=== PATIENT | male | born 1950 | race Caucasian/White ===

== ENCOUNTER 2023-11-24 12:32 | Outpatient (OUT) | payer MEDICARE, SELFPAY ==
--- NOTE | 2023-11-24 12:43 | ECG_ITS ---
[facility] Test Date: 2023-11-24 Pat Name: REANNA RAUSCH Department: Room: - Gender: Male [employer] Machine Operator: : 1950 Requested By: Order Number: [id number] Reading MD: ROMAN JADE Measurements Intervals [place] Rate: 81 P: [place]: QRS: -20 QRSD: 82 T: 31 QT: 353 QTc: 411 Interpretive Statements Atrial fibrillation POSSIBLE RIGHT VENTRICULAR CONDUCTION DELAY [RSR (QR) IN V1/V2] MINIMAL ST DEPRESSION [0.025+ mV ST DEPRESSION] ABNORMAL RHYTHM ECG No previous ECG available for comparison Electronically Signed On 11-24-2023 22:39:28 EDT by ROMAN JADE
--- NOTE | 2023-11-24 12:43 | XR_ITS ---
The [address] [address] Patient Name: REANNA RAUSCH MRN: [id number] date: 1950 Sex: M Assigned Patient Location: [facility] Current Patient Location: Accession/Order Number: [id number] Exam Date: 11/24/2023 13:29 Report Date: 11/25/2023 12:03 At the request of: SANDOVAL LLAMAS Procedure: XR chest 2V PROCEDURE: XR chest 2V DATE: 11/24/2023 12:29 PM CDT COMPARISONS: None. CLINICAL INDICATION: 73 years Male Preop exam FINDINGS: The cardiomediastinal silhouette and pulmonary vasculature are within normal limits. The lungs are clear. There is no evidence of pleural effusion or pneumothorax. Mild thoracic degenerative spondylosis is noted. There is evidence of left atrial appendage device in place. XR/XR chest 2V IMPRESSION: Chest radiograph is essentially within normal limits. Electronically authenticated by: JON KOENIG Date: 11/25/2023 12:03
[2023-11-24 13:47] LABS: Basophils Percent Auto 0.4 % (0.2-2.0); Eosinophils Absolute Auto 0.2 10^3/uL (0.0-0.7); Eosinophils Percent Auto 3.1 % (0.9-7.0); Hemoglobin 11.1 g/dL (14.0-18.0); Immature Granulocytes Abs Auto 0.04 10^3/uL (0.00-0.03); Immature Granulocytes Pct Auto 0.6 % (0.0-0.5); Lymphocytes Absolute Auto 1.1 10^3/uL (1.2-3.8); Lymphocytes Percent Auto 17.1 % (20.5-60.0); Mean Corpuscular HGB Conc 31.7 g/dL (29.9-35.2); Mean Corpuscular Hemoglobin 27.5 pg (25.9-34.0); Mean Corpuscular Volume 86.6 fL (80.0-94.0); Mean Platelet Volume 11.2 fL (9.5-13.5); Monocytes Absolute Auto 0.3 10^3/uL (0.3-0.8); Monocytes Percent Auto 4.3 % (1.7-12.0); Neutrophils Percent Auto 74.5 % (43.0-75.0); Platelet Count 150 10^3/uL (150-450); Red Blood Count 4.04 10^6/uL (4.70-6.10); Red Cell Distribution Width 12.3 % (11.0-15.0); White Blood Count 6.7 10^3/uL (4.0-11.0)
[2023-11-24 13:55] LABS: INR 1.02; Partial Thromboplastin Time 28.2 sec (22.3-36.2); Prothrombin Time 10.8 sec (9.0-11.6)
[2023-11-24 14:43] LABS: Anion Gap 7.1; BUN Creatinine Ratio 11.7; Calcium 9.4 mg/dL (8.5-10.1); Carbon Dioxide 34.8 mmol/L (21.0-32.0); Chloride 99 mmol/L (98-107); Estimated GFR (African America 54 (>=60); Estimated GFR (Non-African Ame 44 (>=60); Glucose 184 mg/dL (74-106); Potassium 4.9 mmol/L (3.5-5.1); Sodium 136 mmol/L (136-145)
== END 2023-11-24 12:33 | disposition home or self-care (01) ==
LOC: PST 12:36
PROVIDERS: PCP Internal Medicine; Visit Provider Urology
DX: Z01.810 Encounter for preprocedural cardiovascular examination (principal); Z01.812 Encounter for preprocedural laboratory examination; N40.0 Benign prostatic hyperplasia without lower urinary tract symptoms; C61 Malignant neoplasm of prostate; E78.5 Hyperlipidemia, unspecified; E11.40 Type 2 diabetes mellitus with diabetic neuropathy, unspecified; F32.A Depression, unspecified; G47.30 Sleep apnea, unspecified; Z79.01 Long term (current) use of anticoagulants; I48.91 Unspecified atrial fibrillation; I25.10 Atherosclerotic heart disease of native coronary artery without angina pectoris; N18.9 Chronic kidney disease, unspecified; E11.22 Type 2 diabetes mellitus with diabetic chronic kidney disease; I12.9 Hypertensive chronic kidney disease with stage 1 through stage 4 chronic kidney disease, or unspecified chronic kidney disease; Z95.0 Presence of cardiac pacemaker
CPT/HCPCS: 71046; 80048; 85025; 85610; 85730; 93005

== ENCOUNTER 2023-12-04 12:59 | Day surgery (SDC) | payer MEDICARE, SELFPAY ==
[2023-11-24 13:40] VITALS: BP 137/73; PULSE 76; TEMP 36.4; O2SAT 98; BMI 27.2
[2023-12-04] VITALS (12 sets, daily range): BP systolic 116–163; BP diastolic 59–99; PULSE 66–89; TEMP 36.1–36.8; O2SAT 91–99; BMI 27.2
[2023-12-04] MEDS: LACTATED RINGER'S SOLUTION 1,000 ML 50 ML IV (13:49)
[2023-12-04] MEDS: LEVOFLOXACIN IN DEXTROSE 5 % 500 MG/100 ML PREMIX 100 MG IV (14:58)
--- NOTE | 2023-12-04 16:23 | PM.URSON ---
Urology Surgery Operative Note Operative Note Procedure Date: 12/04/23 Time Out Performed: yes Pre-op Diagnosis: Urinary retention and prostate cancer Post-op Diagnosis: same as pre-op Procedures performed: 1. Cystoscopy. 2. Transurethral resection of the prostate. Anesthesia: GETA Primary Surgeon: Pipo Covarrubias Complications: None Estimated blood loss (mL): 15 Findings: Obstructed bladder neck from prostatic mass Specimens: Prostate chips Drains: 22 [place] three-way coud? Omalley catheter in the bladder taped to traction and CBI Indications for Procedures: This gentleman has high-grade prostate cancer with a Almont score of 5+5 = 10 and lymph node spread based on his staging studies. He is being managed with total androgen blockade at this time while he waits to get external beam radiation therapy. He has severe bladder outlet obstructive symptoms from a large mass originating from the prostate and blocking his bladder outlet. He now presents for a TURP so as to help facilitate spontaneous urination. He has signed an informed consent after risks were explained. Some of these risks include bleeding, infection, anesthesia, urinary incontinence both temporary and permanent, erectile dysfunction, retrograde ejaculation, persistence of urinary difficulties and the possible need for further operations just to name a few. Detailed description of Procedure: The patient was brought to the operating room and placed on the operating room table in the supine position. SCDs were placed on the lower extremities and turned on and functioning during the entire case. Timeout was done by all parties in the room. We all agreed upon the patient's identification and the planned procedures for this patient. Genn. anesthesia was then administered. The patient was then repositioned into the modified dorsal lithotomy position. All pressure points were satisfactorily padded. Genitalia were sterilely prepped and draped in usual fashion. I started by passing a 26 [place] Olympus resectoscope with a standard bipolar loop electrode per urethra and into the bladder. He had a high-grade bladder damage. He had a large mass originating from the right side of the prostate and growing across to the left side totally obstructing his bladder outlet. This mass also was growing within the bladder from the median lobe and protruding into the bladder outlet. The left ureteral orifice was identified and marked with the loop electrode. The right orifice was found after some resection took place. I started by resecting the median lobe down to the bladder neck level. I then resected this large mass to open up the bladder outlet. All of the tissue during the resection had a very bizarre bright yellow and dark brown color to it. I resected the mass to its origin at the right side of the prostate from within the bladder. The left lateral lobe was resected from the bladder neck to the [place] level. The right lateral lobe and the anterior tissue were also resected similarly. Part of this mass protruded from the right side of the apex. This had to be resected to open up the channel. Intermittent coagulation was done to maintain hemostasis. I did use the vaporization loop also. The Ilich evacuator was used to get all the prostate chips out of the bladder and these were sent for permanent sections. Upon completion, there were no chips remaining in the bladder. The prostatic urethra and bladder neck were wide open. There was no bleeding. The ureteral orifices were patent and effluxing urine. The scope was then removed. I then placed a 22 [place] three-way coud? into the bladder. 30 cc of fluid was placed in the balloon. It was taped to traction and CBI was started. It irrigated clear. The anesthetic was then reversed. He was then transferred to a [facility] bed and wheeled to PACU in stable condition. Urinary Catheter Management Urinary Catheter Management 3-way Urethral: Cath placed during this visit: no
--- NOTE | 2023-12-04 16:39 | PC.NURSE ---
PATIENT STATES HE HAD SOMETHING ON IS TONGUE. THIS BATTERY STARTER GAVE HIM A TISSUE AND HE SPIT THE OBJECT ON THE TISSUE. IT WAS PATIENT'S TOOTH. HE TOLD THIS BATTERY STARTER TO THROW AWAY.
[2023-12-04] MEDS: SOLIFENACIN SUCCINATE 10 MG TABLET PO (17:16)
[2023-12-04] MEDS: 0.9 % SODIUM CHLORIDE 1,000 ML 80 ML IV (17:16)
[2023-12-04] MEDS: SODIUM CHLORIDE IRRIG SOLUTION 3,000 ML 3000 ML IRR ×7 (18:36→23:56)
[2023-12-04] MEDS: BUSPIRONE HCL 10 MG TABLET 5 MG PO (21:17)
[2023-12-04] MEDS: MECLIZINE HCL 12.5 MG TABLET PO (21:17)
[2023-12-04] MEDS: GABAPENTIN 100 MG CAPSULE PO (21:17)
[2023-12-04] MEDS: CEFAZOLIN SODIUM/DEXTROSE,ISO 1 GM/50 ML PREMIX IV (21:17)
[2023-12-04] MEDS: DIGOXIN 125 MCG TABLET PO (21:17)
[2023-12-04] MEDS: ATORVASTATIN CALCIUM 40 MG TABLET PO (21:17)
[2023-12-04] MEDS: SERTRALINE HCL 100 MG TABLET 150 MG PO (21:17)
[2023-12-05] MEDS: SODIUM CHLORIDE IRRIG SOLUTION 3,000 ML 3000 ML IRR ×5 (00:43→04:28)
[2023-12-05] MEDS: CEFAZOLIN SODIUM/DEXTROSE,ISO 1 GM/50 ML PREMIX IV (03:00)
[2023-12-05 04:33] VITALS: BP 103/65; PULSE 78; TEMP 36.6; O2SAT 92
[2023-12-05] MEDS: OMEPRAZOLE 40 MG CAPSULE.DR PO (06:33)
[2023-12-05 08:00] VITALS: BP 109/67; PULSE 82; TEMP 36.9; O2SAT 96
[2023-12-05] MEDS: GABAPENTIN 100 MG CAPSULE PO (08:59)
[2023-12-05] MEDS: METOPROLOL SUCCINATE 100 MG TAB.ER.24H PO (08:59)
[2023-12-05] MEDS: BUSPIRONE HCL 10 MG TABLET 5 MG PO (08:59)
[2023-12-05] MEDS: SOLIFENACIN SUCCINATE 10 MG TABLET PO (08:59)
[2023-12-05] MEDS: AMLODIPINE BESYLATE 5 MG TABLET PO (08:59)
[2023-12-05] MEDS: LOSARTAN POTASSIUM 50 MG TABLET 100 MG PO (08:59)
[2023-12-05] MEDS: HYDROCHLOROTHIAZIDE 25 MG TABLET 12.5 MG PO (08:59)
[2023-12-05] MEDS: ASPIRIN 81 MG TABLET.DR PO (08:59)
== END 2023-12-05 10:11 | disposition home or self-care (01) ==
LOC: SURGOUT 16:18 → MS 16:59
PROVIDERS: PCP Internal Medicine; Visit Provider Urology
PROC: (CPT 52601; principal; 2023-12-04 14:05)
DX: C61 Malignant neoplasm of prostate (principal); N40.1 Benign prostatic hyperplasia with lower urinary tract symptoms; R33.9 Retention of urine, unspecified; N13.8 Other obstructive and reflux uropathy; I48.91 Unspecified atrial fibrillation; G89.29 Other chronic pain; M54.9 Dorsalgia, unspecified; N18.30 Chronic kidney disease, stage 3 unspecified; E11.22 Type 2 diabetes mellitus with diabetic chronic kidney disease; I12.9 Hypertensive chronic kidney disease with stage 1 through stage 4 chronic kidney disease, or unspecified chronic kidney disease; G47.33 Obstructive sleep apnea (adult) (pediatric); E11.40 Type 2 diabetes mellitus with diabetic neuropathy, unspecified; R31.9 Hematuria, unspecified; E11.51 Type 2 diabetes mellitus with diabetic peripheral angiopathy without gangrene; E78.5 Hyperlipidemia, unspecified; I25.10 Atherosclerotic heart disease of native coronary artery without angina pectoris; Z86.73 Personal history of transient ischemic attack (TIA), and cerebral infarction without residual deficits; Z87.891 Personal history of nicotine dependence
CPT/HCPCS: 52601; 36415; 88305; J0690; J1100; J2001; J2405; J2704; J2710; J3010